=== PATIENT | female | born 1965 | race Hispanic/Latino ===

== ENCOUNTER → 2018-04-10 | Outpatient (CLI) | payer MEDICARE | END | disposition home or self-care (01) | LOC: RAH 14:09 | PROVIDERS: ATTEND Internal Medicine Medical Oncology | DX: M79.89 Other specified soft tissue disorders (principal); M79.662 Pain in left lower leg; M79.661 Pain in right lower leg | CPT/HCPCS: 93970 ==

== ENCOUNTER → 2024-12-01 | Outpatient (CLI) | payer OTHER, MEDICAID ==
[~2024-12-01] MED LIST: IOHEXOL-350 75 ML VIAL IV ONE
--- NOTE | 2024-12-02 10:49 | HMCIMG ---
EXAM: CT Abdomen without and with IV contrast. CLINICAL HISTORY: Liver cirrhosis. TECHNIQUE: Thin collimated axial CT images of the abdomen and pelvis were obtained with sagittal and coronal reformatted images also submitted. CT scan done according to ALARA (As Low As Reasonably Achievable). Intravenous contrast was administered. COMPARISON: None. FINDINGS: Unremarkable visualized lung parenchyma. Post-cholecystectomy status. The liver is normal in size and shows mildly nodular outline and rounded margins. Normal post-contrast enhancement. No focal lesion or intrahepatic biliary radicular dilatation. Dilated portal vein measuring up to 1.6 cm. Dilated splenic vein measuring up to 1.1 cm. Moderate splenomegaly measuring 17.5 cm in the craniocaudal dimension, with resultant indentation on the left kidney. There is no focal abnormality appreciated within the pancreas, adrenals, or kidneys. The visualized bowel loops are normal in caliber without evidence of obstruction or ileus. Abdominal and pelvic vessels are patent. Mild calcific atheromatous plaques in the abdominal aorta. No significant lymphadenopathy. No free fluid. Small fat-containing umbilical hernia with an abdominal wall defect of 1.6 cm. Fat-containing ventral wall abdominal hernia in the left paramidline supraumbilical region with a wall defect of 2.9 cm. There is no acute osseous abnormality. IMPRESSIONS: 1. Nodular cirrhotic liver. No focal hepatic lesions. Moderate splenomegaly. 2. Fat-containing ventral wall hernias in left paramidline supraumbilical (2.9 cm wall defect) and umbilical regions (1.6 cm wall defect). 3. Post-cholecystectomy status. /Jaime
== END | disposition home or self-care (01) ==
LOC: RAH 08:36
PROVIDERS: ATTEND Internal Medicine Gastroenterology
DX: K74.69 Other cirrhosis of liver (principal); K43.9 Ventral hernia without obstruction or gangrene; K42.9 Umbilical hernia without obstruction or gangrene; K76.89 Other specified diseases of liver; I86.8 Varicose veins of other specified sites; R16.1 Splenomegaly, not elsewhere classified; I70.0 Atherosclerosis of aorta; Z90.49 Acquired absence of other specified parts of digestive tract
CPT/HCPCS: 74170; Q9967